=== PATIENT | male | born 1955 | race Caucasian/White ===

== ENCOUNTER 2016-11-21 21:56 | Inpatient (IN) | payer OTHER, MEDICARE ==
[2016-11-21 21:56] VITALS: BMI 27.1
--- NOTE | 2016-11-21 22:25 | C.PDOC ---
History Of Present Illness patient presents with 4-5 episodes of bright red blood per rectum, starting this am around 3 am. No f/c/n/v, no trauma. Has brb per rectum. Pt is on baby asa and brillinta Time Seen by Provider: 11/21/16 22:25 Chief Complaint (Nursing): Abdominal Pain History Per: Patient History/Exam Limitations: no limitations Onset/Duration Of Symptoms: Days Current Symptoms Are (Timing): Still Present Number Of Bleeding Episodes: Multiple: Amount of Blood Loss: Medium Severity: Moderate Pain Scale Rating Of: 5 Quality Of Discomfort: Dull Associated Symptoms: Rectal Bleeding. denies: Nausea, Vomiting Modifying Factors: None Currently Taking: Aspirin Recent travel outside of the [place]: No Additional History Per: Family Past Medical History Reviewed: Historical Data, Nursing Documentation, Vital Signs Vital Signs: Last Vital Signs Temp 99 F 11/21/16 22:17 Pulse 100 H 11/21/16 22:17 Resp 20 11/21/16 22:17 BP 189/107 H 11/21/16 22:17 Pulse Ox 97 11/21/16 23:44 - Medical History PMH: CAD, COPD, Diverticulitis, HTN, Hypercholesterolemia, Hypothyroidism Denies: Chronic Kidney Disease Surgical History: CABG (x3) Denies: Pacemaker - [facility] Procedures LEFT HEART CARDIAC CATH (08/24/13) LT HEART ANGIOCARDIOGRAM (08/24/13) OTHER MYECTOMY (03/17/13) Family History: States: No Known Family Hx - Social History Hx Tobacco Use: No Hx Alcohol Use: Yes ([employer]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 Negative for: Nausea, Vomiting, Abdominal Pain Genitourinary: Negative for: Dysuria Musculoskeletal: Negative for: Back Pain Skin: Negative for: Rash, Lesions, Jaundice, Bruising Neurological: Negative for: Weakness Psych: Negative for: Anxiety Physical Exam - Physical Exam Appears: Non-toxic Skin: Warm, Dry Head: Atraumatic Eye(s): bilateral: Normal Inspection Oral Mucosa: Moist Neck: Supple Chest: Symmetrical Cardiovascular: Rhythm Regular Respiratory: No Rales, No Rhonchi, No Wheezing Gastrointestinal/Abdominal: Soft, No Tenderness, No Distention Rectal: Heme Positive, Hemorrhoids, Other (bright red blood/clots in vault) Back: No CVA Tenderness Extremity: Normal ROM Extremity: Bilateral: Atraumatic, No Pedal Edema, Normal Color And Temperature, Normal ROM Neurological/Psych: Oriented x3, Normal Speech, Normal Cognition Gait: Steady ED Course And Treatment - Laboratory Results Result Diagrams: 11/21/16 23:20 11/21/16 23:20 ECG: Interpreted By Me, Viewed By Me ECG Rhythm: Sinus Rhythm (74), Nonspecific Changes O2 Sat by Pulse Oximetry: 97 Pulse Ox Interpretation: Normal - Radiology CXR: Interpreted by Me, Viewed By Me CXR Interpretation: No: Infiltrates, Fracture, Pnemothorax Progress Note: blood work, 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, 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, protonix bolus Disposition Discussed With Dr.: Lucrecia Glover Comment: accepted the pt on his service and took over the care at 12:03 AM Doctor Will See Patient In The: Hospital Counseled Patient/Family Regarding: Studies Performed, Diagnosis - Disposition Disposition: HOSPITALIZED Disposition Time: 22:25 Condition: GUARDED - POA Present On Arrival: None - Clinical Impression Clinical Impression: Abdominal pain, Rectal bleed Decision To Admit - Pt Status Changed To: Hospital Disposition Of: Inpatient - Admit Certification Admit to Inpatient:: After my assessment, the patient will require hospitalization for at least two midnights. This is because of the severity of symptoms shown, intensity of services needed, and/or the medical risk in this patient being treated as an outpatient. - InPatient: Physician Admission Certification: I certify that this patient requires 2 or more midnights of care for the following reason:: After my assessment, the patient will require hospitalization for at least two midnights. This is because of the severity of symptoms shown, intensity of services needed, and/or the medical risk in this patient being treated as an outpatient. - . Bed Request Type: Telemetry Admitting Physician: Lucrecia Glover Patient Diagnosis: Abdominal pain, Rectal bleed
[2016-11-21] MEDS ORDERED: Sodium Chloride 0.9% 1,000 ML IV ONE (22:31)
[2016-11-21] MEDS ORDERED: Pantoprazole 80 MG in Sodium Chloride 0.9% 100 ML IV STA (22:31)
[2016-11-21 23:13] LABS: RBC URINE 2 /hpf (0-3); URINE BACTERIA OCC (<OCC); URINE BILIRUBIN NEGATIVE (NEGATIVE); URINE COLOR Yellow (YELLOW); URINE GLUCOSE (UA) NORMAL (Normal); URINE KETONE NEGATIVE (NEGATIVE); URINE PROTEIN 1+ mg/dL (NEGATIVE); URINE UROBILINOGEN NORMAL mg/dL (0.2-1.0); WBC URINE 10 /hpf (0-5)
[2016-11-21 23:14] LABS: URINE BLOOD NEGATIVE (NEGATIVE); URINE LEUKOCYTE ESTERASE 1+ Leu/uL (Negative)
[2016-11-21] MEDS ORDERED: Sodium Chloride 0.9% 1,000 ML ONE (23:17)
[2016-11-21 23:27] LABS: BASO # 0.1 K/uL (0.0-0.2); BASO % 0.7 % (0.0-2.0); EOS # 0.2 K/uL (0.0-0.7); EOS % 2.2 % (0.0-4.0); HEMATOCRIT 45.9 % (35.0-51.0); LYMPH # 1.8 K/uL (1.0-4.3); LYMPH % 17.5 % (20.0-40.0); MEAN CORPUSCULAR HEMOGLOBIN 28.5 pg (27.0-31.0); MEAN CORPUSCULAR HGB CONC 32.4 g/dL (33.0-37.0); MEAN PLATELET VOLUME 9.1 fL (7.2-11.7); MONO # 0.9 K/uL (0.0-0.8); MONO % 8.4 % (0.0-10.0); NRBC % 0.1 % (0.0-2.0); RED CELL DISTRIBUTION WIDTH 15.1 % (11.5-14.5); WHITE BLOOD COUNT 10.5 K/uL (4.8-10.8)
[2016-11-21 23:31] LABS: CHLORIDE 101 mmol/L (98-107); POTASSIUM 4.1 mmol/L (3.6-5.2); SODIUM 137 mmol/L (132-148)
[2016-11-21 23:33] LABS: ALB/GLOB RATIO 1.6 (1.0-2.1); ALKALINE PHOSPHATASE 57 U/L (38-126); AST/SGOT 54 U/L (17-59); CARBON DIOXIDE 20 mmol/L (22-30); GFR AFRICAN-AMERICAN > 60; TOTAL PROTEIN 7.8 g/dL (6.3-8.3)
[2016-11-21 23:34] LABS: ALT/SGPT 55 U/L (21-72); BLOOD UREA NITROGEN 23 mg/dL (9-20); GLUCOSE,RANDOM 97 mg/dL (75-110)
[2016-11-22 06:31] LABS: BASO # 0.1 K/uL (0.0-0.2); BASO % 0.8 % (0.0-2.0); EOS # 0.3 K/uL (0.0-0.7); EOS % 2.7 % (0.0-4.0); HEMATOCRIT 40.9 % (35.0-51.0); LYMPH # 1.6 K/uL (1.0-4.3); LYMPH % 16.7 % (20.0-40.0); MEAN CELL VOLUME 87.5 fL (80.0-94.0); MEAN CORPUSCULAR HGB CONC 33.1 g/dL (33.0-37.0); MEAN PLATELET VOLUME 8.7 fL (7.2-11.7); MONO # 0.8 K/uL (0.0-0.8); MONO % 8.7 % (0.0-10.0); RED CELL DISTRIBUTION WIDTH 14.8 % (11.5-14.5); WHITE BLOOD COUNT 9.7 K/uL (4.8-10.8)
--- NOTE | 2016-11-22 07:23 | RAD ---
PROCEDURE: CHEST RADIOGRAPH, 1 VIEW HISTORY: GI Bleeding COMPARISON: Comparison is made to 08/27/2013 FINDINGS: LUNGS: Clear. PLEURA: No pneumothorax or pleural fluid seen. CARDIOVASCULAR: The cardiac silhouette is normal in size. Post cardiac surgery changes are noted. OSSEOUS STRUCTURES: No significant abnormalities. VISUALIZED UPPER ABDOMEN: Normal. OTHER FINDINGS: None. IMPRESSION: No active disease.
[2016-11-22] MEDS ORDERED: HYDROCHLOROTHIAZIDE PO SCH (10:00)
[2016-11-22] MEDS ORDERED: Levothyroxine 25 MCG TAB PO SCH (10:00)
[2016-11-22] MEDS ORDERED: VALSARTAN PO SCH (10:00)
[2016-11-22] MEDS ORDERED: ALPRAZOLAM 0.5 MG PO SCH (10:00)
[2016-11-22] MEDS ORDERED: Home Med 1 UNIT (Atorvastatin [Lipitor] 20 MG) PO SCH (10:00)
[2016-11-22] MEDS ORDERED: Home Med 1 UNIT (Acetaminophen/Oxycodone Hydr [Percocet 10/325 Mg Tab] 1 TAB) PO SCH (10:00)
--- NOTE | 2016-11-22 10:05 | CP.PCM.CON ---
<Varun Aparicio - Last Filed: 11/22/16 12:49> History of Present Illness - History of Present Illness History of Present Illness: PGY4 GI Fellow Consult Note Patient is a 61yo male with PMHx significant for CAD s/p CABG and PCI to RCA, hypertension, hypothyroidism, dyslipidemia, diverticulosis, gout who presented to the ED with complaint of rectal bleeding. The patient states that he had been constipated since Friday and sat on the toilet for close to two hours yesterday morning, pushing and straining to stool. Upon finally passing stool, he developed lower abdominal crmaping pain and noted bright red blood mixed in with his stool. This continued to occur approximately every 4 hours until he decided to come in to the ED last night. The patient was concerned about rectal bleeding given his cardiac history and use of ASA and Ticagrelor. He does admit to a subjective fever/chills yesterday and a distant history of diverticulitis managed conservatively. Denies any nausea, vomiting, weight loss, dizziness, lightheadedness, palpitations, H/O hemorrhoids. PMHx: See HPI PSHx: PCI, CABG FHx: Father/Pt's son - CAD/[place] Social: Former smoker (~40-80 pack years), Former EtOH abuse (sober 5 years), No illicit drug use Endo: Colonoscopy several years ago with polyps found, no repeat colonoscopy Review of Systems - Constitutional Constitutional: absent: Anorexia, Chills, Fever - EENT Eyes: absent: Change in Vision Nose/Mouth/Throat: absent: Sore Throat - Cardiovascular Cardiovascular: absent: Chest Pain, Diaphoresis, Dyspnea - Respiratory Respiratory: absent: Cough, Dyspnea, Excessive Mucous Production - Genitourinary Genitourinary: absent: Dysuria, Urinary Frequency, Urinary Urgency - Musculoskeletal Musculoskeletal: absent: Back Pain, Neck Pain - Integumentary Integumentary: absent: New Lesions, Rash - Neurological Neurological: absent: Dizziness, Numbness, Focal Weakness - Psychiatric Psychiatric: absent: Anxiety, Depression - Endocrine Endocrine: absent: Polydipsia, Polyphagia, Polyuria - Hematologic/Lymphatic Hematologic: absent: Easy Bruising, Lymphadenopathy Past Patient History - Past Medical History & Family History Past Medical History?: Yes - Past Social History Smoking Status: Former Smoker - CARDIAC Hx Hypercholesterolemia: Yes Hx Hypertension: Yes Hx Pacemaker: No - PULMONARY Hx Chronic Obstructive Pulmonary Disease (COPD): Yes - NEUROLOGICAL Hx Paralysis: No - HEENT Hx HEENT Problems: No - RENAL Hx Chronic Kidney Disease: No - ENDOCRINE/METABOLIC Hx Hypothyroidism: Yes - HEMATOLOGICAL/ONCOLOGICAL Hx Blood Transfusions: No Hx Blood Transfusion Reaction: No - INTEGUMENTARY Hx Dermatological Problems: No - MUSCULOSKELETAL/RHEUMATOLOGICAL Hx Falls: No - GASTROINTESTINAL Hx Diverticulitis: Yes - GENITOURINARY/GYNECOLOGICAL Hx Genitourinary Disorders: No - PSYCHIATRIC Hx Substance Use: No - SURGICAL HISTORY Hx Coronary Artery Bypass Graft: Yes (x3) - ANESTHESIA Hx Anesthesia: Yes Hx Anesthesia Reactions: No Hx Malignant Hyperthermia: No Meds Allergies/Adverse Reactions: Allergies Allergy/AdvReac Type Severity Reaction Status Date / Time No Known Allergies Allergy Verified 09/11/15 09:22 - Medications Medications: Current Medications Allopurinol (Zyloprim) 300 mg PO DAILY [facility] Last Admin: 11/22/16 09:41 Dose: 300 mg Cyclobenzaprine HCl (Flexeril) 10 mg PO BID [facility] Last Admin: 11/22/16 05:58 Dose: 10 mg Fenofibrate (Tricor) 48 mg PO DAILY [facility] Last Admin: 11/22/16 09:43 Dose: 48 mg Home Med (Acetaminophen/Oxycodone Hydr [Percocet 10/325 Mg Tab]) 1 tab PO BID [facility] Home Med (Alprazolam [Alprazolam Er]) 0.5 mg PO TID [facility] Home Med (Zolpidem Tartrate [Ambien Cr]) 12.5 mg PO HS [facility] Hydrochlorothiazide (Hydrodiuril) 25 mg PO DAILY [facility] Levothyroxine Sodium (Synthroid) 25 mcg PO DAILY@0630 [facility] Losartan Potassium (Cozaar) 100 mg PO DAILY [facility] Metoprolol Tartrate (Lopressor) 50 mg PO DAILY [facility] Last Admin: 11/22/16 09:41 Dose: 50 mg Pantoprazole Sodium (Protonix Inj) 40 mg IVP DAILY [facility] Last Admin: 11/22/16 09:41 Dose: 40 mg Rosuvastatin Calcium (Crestor) 10 mg PO [facility] Physical Exam - Constitutional Appears: Non-toxic, No Acute Distress - Eye Exam Eye Exam: EOMI, PERRL - ENT Exam ENT Exam: Mucous Membranes Moist - Respiratory Exam Respiratory Exam: Clear to Auscultation Bilateral. absent: Rales, Rhonchi, Wheezes - Cardiovascular Exam Cardiovascular Exam: RRR, +S1, +S2 - GI/Abdominal Exam GI & Abdominal Exam: Normal Bowel Sounds, Soft, Tenderness (LLQ). absent: Distended, Firm, Guarding, Organomegaly, Rigid - Rectal Exam Rectal Exam: absent: Black Stool, Bloody Stool, Hemorrhoids Additional comments: external skin tag - Extremities Exam Extremities exam: Positive for: normal inspection. Negative for: pedal edema - Neurological Exam Neurological exam: Alert, Oriented x3 - Psychiatric Exam Psychiatric exam: Normal Affect, Normal Mood - Skin Skin Exam: Dry, Warm Results - Vital Signs Recent Vital Signs: Last Vital Signs Temp 98.4 F 11/22/16 07:00 Pulse 70 11/22/16 07:00 Resp 20 11/22/16 07:00 BP 120/74 11/22/16 07:00 Pulse Ox 97 11/22/16 07:00 - Labs Result Diagrams: 11/22/16 06:21 11/21/16 23:20 Labs: Laboratory Results - last 24 hr 11/22/16 11/22/16 00:33 06:21 WBC 9.7 RBC 4.68 Hgb 13.6 Hct 40.9 MCV 87.5 MCH 29.0 MCHC 33.1 RDW 14.8 H Plt Count 233 MPV 8.7 Neut % (Auto) 71.1 Lymph % (Auto) 16.7 L [place] % (Auto) 8.7 Eos % (Auto) 2.7 Baso % (Auto) 0.8 Neut # 6.9 Lymph # 1.6 [place] # 0.8 Eos # 0.3 Baso # 0.1 Blood Type O POSITIVE Antibody Screen Negative Assessment & Plan - Assessment and Plan (Free Text) Assessment: Patient is a 61yo male with PMHx significant for CAD s/p CABG and PCI to RCA, hypertension, COPD, hypothyroidism, dyslipidemia, diverticulosis, gout who presented to the ED with complaint of rectal bleeding. 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 -Continue supportive care -Advance diet as tolerated -Will benefit from outpatient follow up and colonoscopy -Continue to monitor in house, possible D/C tomorrow if stable - Date & Time Date: 11/22/16 Time: 10:45 <Axel Rodney - Last Filed: 11/22/16 14:33> Meds - Medications Medications: Current Medications Allopurinol (Zyloprim) 300 mg PO DAILY [facility] Last Admin: 11/22/16 09:41 Dose: 300 mg Alprazolam (Xanax) 0.5 mg PO TID [facility] Last Admin: 11/22/16 11:54 Dose: 0.5 mg Cyclobenzaprine HCl (Flexeril) 10 mg PO BID [facility] Last Admin: 11/22/16 05:58 Dose: 10 mg Fenofibrate (Tricor) 48 mg PO DAILY [facility] Last Admin: 11/22/16 09:43 Dose: 48 mg Hydrochlorothiazide (Hydrodiuril) 25 mg PO DAILY [facility] Last Admin: 11/22/16 11:54 Dose: 25 mg Levothyroxine Sodium (Synthroid) 25 mcg PO DAILY@0630 [facility] Losartan Potassium (Cozaar) 100 mg PO DAILY [facility] Last Admin: 11/22/16 11:54 Dose: 100 mg Metoprolol Tartrate (Lopressor) 50 mg PO DAILY [facility] Last Admin: 11/22/16 09:41 Dose: 50 mg Oxycodone/Acetaminophen (Percocet 5/325 Mg Tab) 1 tab PO BID [facility] Last Admin: 11/22/16 11:55 Dose: 1 tab Pantoprazole Sodium (Protonix Inj) 40 mg IVP DAILY [facility] Last Admin: 11/22/16 09:41 Dose: 40 mg Rosuvastatin Calcium (Crestor) 10 mg PO HS [facility] Zolpidem Tartrate (Ambien) 5 mg PO HS [facility] Results - Vital Signs Recent Vital Signs: Last Vital Signs Temp 98.4 F 11/22/16 07:00 Pulse 68 11/22/16 07:45 Resp 20 11/22/16 07:00 BP 120/74 11/22/16 07:00 Pulse Ox 97 11/22/16 07:00 - Labs Result Diagrams: 11/22/16 06:21 11/21/16 23:20 Labs: Laboratory Results - last 24 hr 11/22/16 11/22/16 00:33 06:21 WBC 9.7 RBC 4.68 Hgb 13.6 Hct 40.9 MCV 87.5 MCH 29.0 MCHC 33.1 RDW 14.8 H Plt Count 233 MPV 8.7 Neut % (Auto) 71.1 Lymph % (Auto) 16.7 L [place] % (Auto) 8.7 Eos % (Auto) 2.7 Baso % (Auto) 0.8 Neut # 6.9 Lymph # 1.6 [place] # 0.8 Eos # 0.3 Baso # 0.1 Blood Type O POSITIVE Antibody Screen Negative Attending/Attestation - Attestation I have personally seen and examined this patient.: Yes I have fully participated in the care of the patient.: Yes I have reviewed all pertinent clinical information: Yes Notes (Text): 11/22/16 14:27 I have seen and examined patient with GI fellow. Agree with above documentation with the following additions. In brief, this is a 61 year old male with history of CAD/CABG s/p stent on brilinta, HTN, hypothyroidism who presents to hospital with complaint of rectal bleeding which started yesterday. He notes ongoing chronic constipation with heavy straining/pushing during defecation yesterday prior to bleeding episode. Following this he notes 2 additional episodes of hematochezia which prompted him to come to hospital. He also reports associated mild LLQ abdominal pain but denies nausea, vomiting, fever/chills, weight loss, or change in bowel habits. He had a colonoscopy 10 years ago which showed a "few" polyps as per patient. CAD/CABG s/p stent on brilinta HTN Hypothyroidism Rectal bleeding in setting of acute constipation - H/H stable, continue to monitor - Advance diet as tolerated - Currently hemodynamically stable without evidence of recurrent bleeding noted while in hospital, continue with observation. Brilinta temporarily being held, follow up cardiology recommendations - Bowel regimen to prevent constipation - Patient certainly would benefit from colonoscopy evaluation given rectal bleeding, this can be scheduled electively as outpatient. Patient given office contact information for follow up.
--- NOTE | 2016-11-22 11:51 | CARD ---
APPROVED REPORT EKG Measurement Heart [id number] <Conclusion> Normal sinus rhythm Minimal voltage criteria for LVH, may be normal variant Borderline ECG
[2016-11-22] MEDS: Oxycodone/Acetaminophen 5/325 mg Tab PO SCH ×2 (11:55→17:40)
--- NOTE | 2016-11-22 18:25 | CP.PCM.HP ---
History of Present Illness - History of Present Illness History of Present Illness: Patient is a 61-year-old male with past medical history significant for CAD S/P CABG and PCI to RCA, hypertension, hypothyroidism, dyslipidemia, diverticulosis , gout who presented to ED with complaint of rectal bleeding. Patient states that he had been constipated since Friday and Friday on the toilet for close to 2 hours yesterday morning, pushing and straining to stool. Upon finally passing stool, he developed lower abdominal cramping pain and noted bright red blood mixed in with his stool. This continued to occur approximately every 4 hours until he decided to come in to the ED. Patient was concerned about rectal bleeding given his cardiac history and use of aspirin and ticagrelor. He does admit to a subjective fever/chills yesterday and a distant history of diverticulitis managed conservatively. Denies any nausea, vomiting, weight loss , dizziness, lightheadedness, palpitation. Present on Admission - Present on Admission Any Indicators Present on Admission: No Past Patient History - Past Medical History & Family History Past Medical History?: Yes - Past Social History Smoking Status: Former Smoker - CARDIAC Hx Cardiac Disorders: Yes (CAD, CABGx3) Hx Hypercholesterolemia: Yes Hx Hypertension: Yes - PULMONARY Hx Chronic Obstructive Pulmonary Disease (COPD): Yes - NEUROLOGICAL Hx Paralysis: No - HEENT Hx HEENT Problems: No - RENAL Hx Chronic Kidney Disease: No - ENDOCRINE/METABOLIC Hx Hypothyroidism: Yes - HEMATOLOGICAL/ONCOLOGICAL Hx Blood Transfusions: No Hx Blood Transfusion Reaction: No - INTEGUMENTARY Hx Dermatological Problems: No - MUSCULOSKELETAL/RHEUMATOLOGICAL Hx Falls: No - GASTROINTESTINAL Hx Diverticulitis: Yes - GENITOURINARY/GYNECOLOGICAL Hx Genitourinary Disorders: No - PSYCHIATRIC Hx Substance Use: No - SURGICAL HISTORY Hx Coronary Artery Bypass Graft: Yes (x3) - ANESTHESIA Hx Anesthesia: Yes Hx Anesthesia Reactions: No Hx Malignant Hyperthermia: No Meds Allergies/Adverse Reactions: Allergies Allergy/AdvReac Type Severity Reaction Status Date / Time No Known Allergies Allergy Verified 01/27/17 07:17 Physical Exam - Constitutional Appears: Well - Head Exam Head Exam: ATRAUMATIC, NORMAL INSPECTION, NORMOCEPHALIC - Eye Exam Eye Exam: EOMI, Normal appearance, PERRL Pupil Exam: NORMAL ACCOMODATION, PERRL - ENT Exam ENT Exam: Mucous Membranes Moist, Normal Exam - Neck Exam Neck exam: Positive for: Normal Inspection - Respiratory Exam Respiratory Exam: Decreased Breath Sounds - Cardiovascular Exam Cardiovascular Exam: REGULAR RHYTHM, +S1, +S2 - GI/Abdominal Exam GI & Abdominal Exam: Diminished Bowel Sounds, Soft - Rectal Exam Rectal Exam: Deferred Results - Vital Signs Recent Vital Signs: Last Vital Signs Temp 98.2 F 11/22/16 15:07 Pulse 59 L 11/22/16 15:07 Resp 20 11/22/16 15:07 BP 101/65 11/22/16 15:07 Pulse Ox 98 11/22/16 15:07 - Labs Result Diagrams: 11/22/16 06:21 11/21/16 23:20 Labs: Laboratory Results - last 24 hr 11/22/16 11/22/16 00:33 06:21 WBC 9.7 RBC 4.68 Hgb 13.6 Hct 40.9 MCV 87.5 MCH 29.0 MCHC 33.1 RDW 14.8 H Plt Count 233 MPV 8.7 Neut % (Auto) 71.1 Lymph % (Auto) 16.7 L [place] % (Auto) 8.7 Eos % (Auto) 2.7 Baso % (Auto) 0.8 Neut # 6.9 Lymph # 1.6 [place] # 0.8 Eos # 0.3 Baso # 0.1 Blood Type O POSITIVE Antibody Screen Negative Assessment & Plan (1) Abdominal pain Status: Acute (2) Colitis Status: Acute (3) Perforated ear drum Status: Acute (4) Rectal bleed Status: Acute - Assessment and Plan (Free Text) Plan: Consult GI Zyloprim TriCor HydroDiuril Synthroid Cozaar Lopressor Percocet Protonix Crestor
[2016-11-22] MEDS ORDERED: ZOLPIDEM TARTRATE 12.5 MG PO SCH (22:00)
[2016-11-23] MEDS ORDERED: Levothyroxine 25 MCG TAB PO SCH (06:30)
--- NOTE | 2016-11-23 08:08 | CP.PCM.PN ---
<Varun Aparicio - Last Filed: 11/23/16 09:01> Subjective - Date & Time of Evaluation Date of Evaluation: 11/23/16 Time of Evaluation: 08:04 - Subjective Subjective: PGY4 GI Fellow Progress Note Patient seen and examined bedside this morning. He has not had any further bloody bowel movements since yesterday. Tolerating diet without issue. Less abdominal pain, rates it 1/10 at present. No nausea, vomiting, diarrhea, fever, chills. 12 system ROS performed and negative except where stated. Objective - Vital Signs/Intake and Output Vital Signs (last 24 hours): Temp Pulse Resp BP Pulse Ox 98.6 F 77 20 124/79 98 11/22/16 23:00 11/23/16 00:05 11/22/16 23:00 11/22/16 23:00 11/22/16 15:07 Intake and Output: 11/23/16 11/23/16 06:59 18:59 Intake Total 660 Balance 660 - Medications Medications: Current Medications Allopurinol (Zyloprim) 300 mg PO DAILY [facility] Last Admin: 11/22/16 09:41 Dose: 300 mg Alprazolam (Xanax) 0.5 mg PO TID [facility] Last Admin: 11/22/16 17:41 Dose: 0.5 mg Cyclobenzaprine HCl (Flexeril) 10 mg PO BID [facility] Last Admin: 11/22/16 17:41 Dose: 10 mg Fenofibrate (Tricor) 48 mg PO DAILY [facility] Last Admin: 11/22/16 09:43 Dose: 48 mg Hydrochlorothiazide (Hydrodiuril) 25 mg PO DAILY [facility] Last Admin: 11/22/16 11:54 Dose: 25 mg Levothyroxine Sodium (Synthroid) 25 mcg PO DAILY@0630 [facility] Last Admin: 11/23/16 06:07 Dose: 25 mcg Losartan Potassium (Cozaar) 100 mg PO DAILY [facility] Last Admin: 11/22/16 11:54 Dose: 100 mg Metoprolol Tartrate (Lopressor) 50 mg PO DAILY [facility] Last Admin: 11/22/16 09:41 Dose: 50 mg Oxycodone/Acetaminophen (Percocet 5/325 Mg Tab) 1 tab PO BID [facility] Last Admin: 11/22/16 17:40 Dose: 1 tab Pantoprazole Sodium (Protonix Inj) 40 mg IVP DAILY [facility] Last Admin: 11/22/16 09:41 Dose: 40 mg Rosuvastatin Calcium (Crestor) 10 mg PO HS [facility] Last Admin: 11/22/16 22:16 Dose: 10 mg Zolpidem Tartrate (Ambien) 5 mg PO HS [facility] Last Admin: 11/22/16 22:22 Dose: 5 mg - Labs Labs: 11/22/16 06:21 PT 11.5 SECONDS (9.7-12.2) 11/21/16 23:03 INR 1.0 11/21/16 23:03 APTT 21 SECONDS (21-34) 11/21/16 23:03 - Constitutional Appears: Non-toxic, No Acute Distress - Eye Exam Eye Exam: EOMI, PERRL - ENT Exam ENT Exam: Mucous Membranes Moist - Respiratory Exam Respiratory Exam: Clear to Ausculation Bilateral. absent: Rales, Rhonchi, Wheezes - Cardiovascular Exam Cardiovascular Exam: RRR, +S1, +S2 - GI/Abdominal Exam GI & Abdominal Exam: Soft, Normal Bowel Sounds. absent: Distended, Firm, Guarding, Rigid, Tenderness, Organomegaly - Extremities Exam Extremities Exam: Normal Inspection. absent: Pedal Edema - Neurological Exam Neurological Exam: Alert, Awake, Oriented x3 - Psychiatric Exam Psychiatric exam: Normal Affect, Normal Mood - Skin Skin Exam: Dry, Warm Assessment and Plan - Assessment and Plan (Free Text) Assessment: Patient is a 61yo male with PMHx significant for CAD s/p CABG and PCI to RCA, hypertension, COPD, hypothyroidism, dyslipidemia, diverticulosis, gout who presented to the ED with complaint of rectal bleeding. -Rectal bleeding, suspect lower GI bleeding, likely diverticular bleed -Constipation -H/O diverticulosis -CAD on ASA/Ticagrelor -Hypertension -Hypothyroidism Plan: -Continue to hold ASA/Ticagrelor in setting of ongoing hematochezia, no contraindication to resuming therapy at this juncture -Continue supportive care -Tolerating diet without issue, advance to regular diet/high fiber -Will benefit from outpatient follow up and colonoscopy, information given to patient -HCV Ab screening negative -Clear for D/C from GI standpoint <Axel Rodney - Last Filed: 11/23/16 09:07> Objective - Vital Signs/Intake and Output Vital Signs (last 24 hours): Temp Pulse Resp BP Pulse Ox 98.0 F 77 18 126/70 97 11/23/16 07:02 11/23/16 08:25 11/23/16 07:02 11/23/16 07:02 11/23/16 07:02 Intake and Output: 11/23/16 11/23/16 06:59 18:59 Intake Total 660 Balance 660 - Medications Medications: Current Medications Allopurinol (Zyloprim) 300 mg PO DAILY [facility] Last Admin: 11/22/16 09:41 Dose: 300 mg Alprazolam (Xanax) 0.5 mg PO TID [facility] Last Admin: 11/22/16 17:41 Dose: 0.5 mg Cyclobenzaprine HCl (Flexeril) 10 mg PO BID [facility] Last Admin: 11/22/16 17:41 Dose: 10 mg Fenofibrate (Tricor) 48 mg PO DAILY [facility] Last Admin: 11/22/16 09:43 Dose: 48 mg Hydrochlorothiazide (Hydrodiuril) 25 mg PO DAILY [facility] Last Admin: 11/22/16 11:54 Dose: 25 mg Levothyroxine Sodium (Synthroid) 25 mcg PO DAILY@0630 [facility] Last Admin: 11/23/16 06:07 Dose: 25 mcg Losartan Potassium (Cozaar) 100 mg PO DAILY [facility] Last Admin: 11/22/16 11:54 Dose: 100 mg Metoprolol Tartrate (Lopressor) 50 mg PO DAILY [facility] Last Admin: 11/22/16 09:41 Dose: 50 mg Oxycodone/Acetaminophen (Percocet 5/325 Mg Tab) 1 tab PO BID [facility] Last Admin: 11/22/16 17:40 Dose: 1 tab Pantoprazole Sodium (Protonix Inj) 40 mg IVP DAILY [facility] Last Admin: 11/22/16 09:41 Dose: 40 mg Rosuvastatin Calcium (Crestor) 10 mg PO HS [facility] Last Admin: 11/22/16 22:16 Dose: 10 mg Zolpidem Tartrate (Ambien) 5 mg PO HS [facility] Last Admin: 11/22/16 22:22 Dose: 5 mg - Labs Labs: 11/22/16 06:21 PT 11.5 SECONDS (9.7-12.2) 11/21/16 23:03 INR 1.0 11/21/16 23:03 APTT 21 SECONDS (21-34) 11/21/16 23:03 Attending/Attestation - Attestation I have personally seen and examined this patient.: Yes I have fully participated in the care of the patient.: Yes I have reviewed all pertinent clinical information, including history, physical exam and plan: Yes Notes (Text): 11/23/16 09:04 I have seen and examined patient with GI fellow. No acute events overnight, he is seen resting in bed appears quite comfortable. His abdominal pain has essentially resolved and he denies nausea, vomiting, diarrhea, fever/chills. He consumed his breakfast tray in entirety today. Review of vitals from today are normal. CAD/CABG s/p stent on Brilinta HTN Hyperlipidemia Rectal bleeding - resolved. Chronic constipation. - Advance diet as tolerated - H/H stable, continue to monitor - No contraindication to resuming antiplatelet therapy at this time - Patient will need outpatient colonoscopy for further evaluation of rectal bleeding, will coordinate with Dr. Boothe regarding holding Brilinta prior to procedure. From GI perspective ok to discharge home with subsequent outpatient follow up.
[2016-11-23 08:58] VITALS: TEMP 98
[2016-11-23] MEDS: Oxycodone/Acetaminophen 5/325 mg Tab PO SCH (09:31)
--- NOTE | 2016-11-23 14:09 | CP.PCM.PN ---
Subjective - Date & Time of Evaluation Date of Evaluation: 11/23/16 Time of Evaluation: 14:20 - Subjective Subjective: clinically same Objective - Vital Signs/Intake and Output Vital Signs (last 24 hours): Temp Pulse Resp BP Pulse Ox 98.0 F 77 18 126/70 97 11/23/16 07:02 11/23/16 08:25 11/23/16 07:02 11/23/16 07:02 11/23/16 07:02 Intake and Output: 11/23/16 11/23/16 06:59 18:59 Intake Total 660 Balance 660 - Medications Medications: Current Medications Allopurinol (Zyloprim) 300 mg PO DAILY [facility] Last Admin: 11/23/16 09:30 Dose: 300 mg Alprazolam (Xanax) 0.5 mg PO TID [facility] Last Admin: 11/23/16 13:17 Dose: 0.5 mg Cyclobenzaprine HCl (Flexeril) 10 mg PO BID [facility] Last Admin: 11/23/16 09:29 Dose: 10 mg Fenofibrate (Tricor) 48 mg PO DAILY [facility] Last Admin: 11/23/16 09:29 Dose: 48 mg Hydrochlorothiazide (Hydrodiuril) 25 mg PO DAILY [facility] Last Admin: 11/23/16 09:29 Dose: 25 mg Levothyroxine Sodium (Synthroid) 25 mcg PO DAILY@0630 [facility] Last Admin: 11/23/16 06:07 Dose: 25 mcg Losartan Potassium (Cozaar) 100 mg PO DAILY [facility] Last Admin: 11/23/16 09:30 Dose: 100 mg Metoprolol Tartrate (Lopressor) 50 mg PO DAILY [facility] Last Admin: 11/23/16 09:29 Dose: 50 mg Oxycodone/Acetaminophen (Percocet 5/325 Mg Tab) 1 tab PO BID [facility] Last Admin: 11/23/16 09:31 Dose: 1 tab Pantoprazole Sodium (Protonix Inj) 40 mg IVP DAILY [facility] Last Admin: 11/23/16 09:29 Dose: 40 mg Rosuvastatin Calcium (Crestor) 10 mg PO HS [facility] Last Admin: 11/22/16 22:16 Dose: 10 mg Zolpidem Tartrate (Ambien) 5 mg PO HS [facility] Last Admin: 11/22/16 22:22 Dose: 5 mg - Labs Labs: 11/22/16 06:21 PT 11.5 SECONDS (9.7-12.2) 11/21/16 23:03 INR 1.0 11/21/16 23:03 APTT 21 SECONDS (21-34) 11/21/16 23:03 - Constitutional Appears: Well - Head Exam Head Exam: ATRAUMATIC, NORMAL INSPECTION, NORMOCEPHALIC - Eye Exam Eye Exam: EOMI, Normal appearance, PERRL Pupil Exam: NORMAL ACCOMODATION, PERRL - ENT Exam ENT Exam: Mucous Membranes Moist, Normal Exam - Neck Exam Neck Exam: Full ROM, Normal Inspection. absent: Lymphadenopathy - Respiratory Exam Respiratory Exam: Decreased Breath Sounds - Cardiovascular Exam Cardiovascular Exam: REGULAR RHYTHM, +S1, +S2 - GI/Abdominal Exam GI & Abdominal Exam: Soft, Diminished Bowel Sounds - Rectal Exam Rectal Exam: Deferred Assessment and Plan (1) Abdominal pain Status: Acute (2) Colitis Status: Acute (3) Perforated ear drum Status: Acute (4) Rectal bleed Status: Acute - Assessment and Plan (Free Text) Plan: Patient feeling better Discharge home today Follow-up in my clinic in 1 week Follow-up with Dr. marj tavarez Follow-up with Dr. Boothe next Watch for bleeding If no bleeding then to start aspirin, Brilinta on Friday
--- NOTE | 2016-11-23 14:30 | CP.PCM.PN ---
Subjective - Date & Time of Evaluation Date of Evaluation: 11/23/16 Time of Evaluation: 14:00 - Subjective Subjective: RN PLACEMENT NOTES 61 yr old male admitted for rectal bleeding Pt seen today with Dr. René brown, denies any abdominal pain, further rectal bleeding, tolerating diet seen by GI , hgb stable , cleared for discharge from GI standpoint and f/u out patient for further work up As per Dr. René brown, pt cleared for discharge home today and f/u with his office on Friday , and resume brilinta on Friday if no further bleeding Discharge plan discussed with patient who understands and agrees with plan Pt instructed to returns to ED if symptoms returns Objective - Vital Signs/Intake and Output Vital Signs (last 24 hours): Temp Pulse Resp BP Pulse Ox 98.0 F 77 18 126/70 97 11/23/16 07:02 11/23/16 08:25 11/23/16 07:02 11/23/16 07:02 11/23/16 07:02 Intake and Output: 11/23/16 11/23/16 06:59 18:59 Intake Total 660 Balance 660 - Medications Medications: Current Medications Allopurinol (Zyloprim) 300 mg PO DAILY [facility] Last Admin: 11/23/16 09:30 Dose: 300 mg Alprazolam (Xanax) 0.5 mg PO TID [facility] Last Admin: 11/23/16 13:17 Dose: 0.5 mg Cyclobenzaprine HCl (Flexeril) 10 mg PO BID [facility] Last Admin: 11/23/16 09:29 Dose: 10 mg Fenofibrate (Tricor) 48 mg PO DAILY [facility] Last Admin: 11/23/16 09:29 Dose: 48 mg Hydrochlorothiazide (Hydrodiuril) 25 mg PO DAILY [facility] Last Admin: 11/23/16 09:29 Dose: 25 mg Levothyroxine Sodium (Synthroid) 25 mcg PO DAILY@0630 [facility] Last Admin: 11/23/16 06:07 Dose: 25 mcg Losartan Potassium (Cozaar) 100 mg PO DAILY [facility] Last Admin: 11/23/16 09:30 Dose: 100 mg Metoprolol Tartrate (Lopressor) 50 mg PO DAILY [facility] Last Admin: 11/23/16 09:29 Dose: 50 mg Oxycodone/Acetaminophen (Percocet 5/325 Mg Tab) 1 tab PO BID [facility] Last Admin: 11/23/16 09:31 Dose: 1 tab Pantoprazole Sodium (Protonix Inj) 40 mg IVP DAILY [facility] Last Admin: 11/23/16 09:29 Dose: 40 mg Rosuvastatin Calcium (Crestor) 10 mg PO HS [facility] Last Admin: 11/22/16 22:16 Dose: 10 mg Zolpidem Tartrate (Ambien) 5 mg PO HS [facility] Last Admin: 11/22/16 22:22 Dose: 5 mg - Labs Labs: 11/22/16 06:21 PT 11.5 SECONDS (9.7-12.2) 11/21/16 23:03 INR 1.0 11/21/16 23:03 APTT 21 SECONDS (21-34) 11/21/16 23:03
[2016-11-23 15:19] VITALS: BP 112/69; PULSE 70; RESP 20; O2SAT 99
== END 2016-11-23 16:00 | disposition home or self-care (01) | DRG 379 ==
LOC: C.ER 21:56 → C.6T 11-22 00:05
PROVIDERS: ADMIT Internal Medicine Nephrology; ATTEND Internal Medicine Nephrology
DX: K57.31 Diverticulosis of large intestine without perforation or abscess with bleeding (principal); I10 Essential (primary) hypertension; J44.9 Chronic obstructive pulmonary disease, unspecified; K59.00 Constipation, unspecified; E03.9 Hypothyroidism, unspecified; E78.5 Hyperlipidemia, unspecified; I25.10 Atherosclerotic heart disease of native coronary artery without angina pectoris; Z95.1 Presence of aortocoronary bypass graft; Z95.5 Presence of coronary angioplasty implant and graft; Z87.891 Personal history of nicotine dependence

== ENCOUNTER 2017-01-27 06:30 | Day surgery (SDC) | payer OTHER, MEDICARE ==
[2017-01-27 07:39] VITALS: O2SAT 100
[2017-01-27] MEDS ORDERED: Propofol 10 mg/ml Inj (20 ML) ONE (08:21)
[2017-01-27] MEDS ORDERED: Lactated Ringer's 500 ML IV ONE (08:21)
[2017-01-27] MEDS ORDERED: Lidocaine Hydrochloride 5 ML INJ ONE (08:21)
--- NOTE | 2017-01-27 08:24 | CP.SDSHP ---
Same Day Surgery H & P - History Proposed Procedure: Colonoscopy Pre-Op Diagnosis: Lower GI bleeding - Previous Medical/Surgical History Cardiac: Hypertension, ASHD/CAD Pulmonary: Emphysema/COPD Endocrine/Metabolic: Thyroid Disease Previous Surgical History: CABG, cardiac catheterization with stents, right knee arthroscopy - Allergies Allergies: Allergies No Known Allergies Allergy (Verified 01/27/17 07:17) - Current Medications Current Medications: See reconciliation sheet - Physical Exam General Appearance: WD WN male in NAD Vital Signs: Vital Signs 01/27/17 07:10 Temperature 97.0 F L Pulse Rate 65 Respiratory 19 Rate Blood Pressure 149/76 O2 Sat by Pulse 100 Oximetry Mental Status: Alert & Oriented x3 Neuro: WNL Heart: WNL Lungs: WNL GI: WNL - {Optional Preform as Required} Abdomen: WNL - Impression Impression: Lower GI bleeding Pt. Evaluated Today:Candidate for Anesthesia & Procedure: Yes - Date & Time Date: 01/27/17 Time: 08:23 Short Stay Discharge - Short Stay Discharge Admitting Diagnosis/Reason for Visit: LOWER GI BLEEDING Disposition: HOME/ ROUTINE
[2017-01-27 10:06] VITALS: BP 124/66; PULSE 59; RESP 15; TEMP 98.1
== END 2017-01-27 10:05 | disposition home or self-care (01) ==
LOC: C.ENDO 06:30
PROVIDERS: ATTEND Internal Medicine Gastroenterology
DX: D12.3 Benign neoplasm of transverse colon (principal)
CPT/HCPCS: 45388; 88305; J2704; J7120

== ENCOUNTER 2017-05-28 07:45 | Inpatient (IN) | payer OTHER, MEDICARE ==
[2017-05-05 09:28] VITALS: BMI 28.5
[2017-05-30] MEDS ORDERED: Bupivacaine HCl 0.5% PF (10 ml) Inj ONE (10:41)
[2017-05-30] MEDS ORDERED: ceFAZolin IV 1 gm in Dextrose 0 GM/0 ML BAG IVPB ONE (10:41)
[2017-05-30] MEDS ORDERED: Bupivacaine 0.5% Inj(30mL) ONE ×2 (10:42→15:56)
[2017-05-30] MEDS ORDERED: Bacitracin 150,000 UNIT in Sodium Chloride 0.9% Irrig 3,000 ML IR SCH (10:45)
[2017-05-30] MEDS ORDERED: Lactated Ringer's 1,000 ML IV ONE ×3 (11:26→17:00)
[2017-05-30] MEDS ORDERED: Propofol 10 mg/ml Inj (20 ML) ONE (11:35)
[2017-05-30] MEDS ORDERED: ceFAZolin IV 2 gm in Dextrose 1 GM/50 ML BAG IVPB ONE (11:39)
[2017-05-30] MEDS ORDERED: Bupivacaine Liposomal Inj 20 ml INJ ONE (11:45)
[2017-05-30] MEDS ORDERED: Sodium Chloride 0.9% 60 ML IV ONE (12:17)
[2017-05-30] MEDS ORDERED: ePHEDrine 50 mg/ml Inj ONE (12:33)
[2017-05-30] MEDS ORDERED: Phenylephrine 10 mg/ml Inj ONE (12:33)
[2017-05-30] MEDS ORDERED: Morphine 4 MG/ML VIAL ONE (12:48)
[2017-05-30] MEDS ORDERED: Neostigmine Methylsulfate 3mg/3ml Syringe IV ONE (15:16)
[2017-05-30] MEDS: HYDROmorphone 0.5 mg/0.5 ml ISec IVP PRN ×3 (15:44→17:50)
--- NOTE | 2017-05-30 16:38 | PCM.ANESB3 ---
Femoral Nerve Block - Femoral Nerve Block Date of Procedure: 05/30/17 Anesthesiologist: Oliver Procedure Performed: Femoral Nerve Block Right - Procedure Femoral Nerve Block: The procedure was explained to the patient that it is for the post-operative pain management. Preoperative consent was obtained after a thorough discussion with the patient regarding the benefits and possible complications. Due to cast and dressing placement, I was unable to obtain an ultrasound view for an adductor canal block that could be confidently performed in a sterile fashion. Decision was made to proceed with femoral nerve block at inguinal crease. Standard monitors were applied in pacu and analgesia was provided intravenously by PACU nurse. After applying oxygen by nasal cannula and administering IV Sedation, patient was placed in supine position with fully extended lower extremities and the right groin exposed. The femoral artery was then carefully palpated. The ultrasound transducer was then applied to this area in the transverse plane and the femoral nerve was visualized lateral to the femoral artery and underneath the fascia iliaca. After thorough identification, the inguinal crease area was prepped with chloraprep. At this point, a #21 gauge Stimuplex 4-inch needle was inserted immediately lateral to the femoral artery pulse at the inguinal crease and advanced perpendicularly. The needle was inserted to the ultrasound transducer in-plane towards the femoral nerve in a [id number] direction. Needle advancement was performed carefully under direct ultrasound visualization. After negative aspiration, ___20__cc of ___0.5__% _bupivacaine was injected and Under ultrasound guidance the local anesthetics were observed spreading below fascia iliaca and around the femoral nerve. The needle was removed intact and sterile dressing was applied. The patient had stable vital signs, was conscious and in no apparent distress. The patient tolerated the femoral nerve block well with stable vital signs and good analgesia
[2017-05-30] MEDS ORDERED: HYDROmorphone 0.5 mg/0.5 ml ISec ONE (17:51)
--- NOTE | 2017-05-30 18:50 | RAD ---
PROCEDURE: Right Knee Radiographs. HISTORY: In Pacu, s/p R TKA COMPARISON: Comparison made with radiographs of the bilateral knee radiographs 02/27/2017. FINDINGS: BONES: Status post right TKA. Hardware appears intact. There is satisfactory alignment. Expected unremarkable postoperative changes include subcutaneous air edema/infiltration and in situ drainage catheter. Metallic skin closure dario are present. JOINTS: Normal. No osteoarthritis. JOINT EFFUSION: None. OTHER FINDINGS: None. IMPRESSION: Status post right TKA. Satisfactory alignment.
[2017-05-30] MEDS ORDERED: Sodium Chloride 0.9% 1,000 ML IV ONE (20:00)
[2017-05-30] MEDS ORDERED: Fluticasone-Salmeterol 250-50mcg Diskus INH SCH (20:00)
[2017-05-30] MEDS ORDERED: ceFAZolin IV 2 gm in Dextrose 2 GM/100 ML BAG IVPB SCH (20:00)
[2017-05-30] MEDS: HYDROmorphone 1 mg/ml ISec IVP PRN (20:30)
[2017-05-30] MEDS: ceFAZolin IV 2 gm in Dextrose 2 GM/100 ML BAG IVPB SCH (21:34)
[2017-05-30] MEDS: Oxycodone/Acetaminophen 5/325 mg Tab PO PRN (22:30)
[2017-05-31] MEDS: HYDROmorphone 1 mg/ml ISec IVP PRN ×4 (00:34→21:38)
[2017-05-31 03:24] VITALS: RESP 20
[2017-05-31] MEDS: ceFAZolin IV 2 gm in Dextrose 2 GM/100 ML BAG IVPB SCH ×3 (04:27→21:41)
[2017-05-31] MEDS: Levothyroxine 25 MCG TAB PO SCH (05:52)
[2017-05-31 07:40] LABS: BASO # 0.1 K/uL (0.0-0.2); BASO % 1.4 % (0.0-2.0); EOS % 0.4 % (0.0-4.0); HEMATOCRIT 35.4 % (35.0-51.0); LYMPH # 0.7 K/uL (1.0-4.3); LYMPH % 7.8 % (20.0-40.0); MEAN CELL VOLUME 87.6 fL (80.0-94.0); MEAN CORPUSCULAR HEMOGLOBIN 28.8 pg (27.0-31.0); MEAN CORPUSCULAR HGB CONC 32.8 g/dL (33.0-37.0); MEAN PLATELET VOLUME 8.8 fL (7.2-11.7); MONO # 1.2 K/uL (0.0-0.8); MONO % 13.3 % (0.0-10.0); NRBC % 0.1 % (0.0-2.0); PLATELET COUNT 204 K/uL (130-400); RED CELL DISTRIBUTION WIDTH 14.3 % (11.5-14.5)
[2017-05-31 08:11] LABS: CHLORIDE 95 mmol/L (98-107)
[2017-05-31 08:12] LABS: POTASSIUM 3.9 mmol/L (3.6-5.2); SODIUM 131 mmol/L (132-148)
[2017-05-31 08:14] LABS: ALB/GLOB RATIO 1.9 (1.0-2.1); ALKALINE PHOSPHATASE 39 U/L (38-126); ALT/SGPT 50 U/L (21-72); AST/SGOT 35 U/L (17-59); BLOOD UREA NITROGEN 25 mg/dL (9-20); CALCIUM 7.6 mg/dl (8.6-10.4); CARBON DIOXIDE 25 mmol/L (22-30); GFR AFRICAN-AMERICAN > 60; GLUCOSE,RANDOM 94 mg/dL (75-110); TOTAL PROTEIN 5.6 g/dL (6.3-8.3)
[2017-05-31] MEDS: Magnesium Oxide 400 mg Tab UD PO SCH (10:07)
[2017-05-31 10:10] LABS: EOSINOPHIL 1 % (0-4); METAMYELOCYTE 1 % (0-0); NEUTROPHIL 71 % (50-75); TOTAL CELLS COUNTED 100
[2017-05-31] MEDS: Enoxaparin 40 mg Syringe SC SCH (10:10)
[2017-05-31] MEDS: Sodium Chloride 0.9% 1,000 ML IV SCH ×2 (11:45→17:33)
[2017-05-31] MEDS: Oxycodone/Acetaminophen 5/325 mg Tab PO PRN ×2 (14:05→18:19)
--- NOTE | 2017-05-31 18:18 | RAD ---
PROCEDURE: CHEST RADIOGRAPH, 1 VIEW HISTORY: postop fever COMPARISON: 11/21/2016 FINDINGS: LUNGS: Status post median sternotomy. No focal infiltrate or effusion. Small nodular density at the right lung base may represent vessel on end. PLEURA: No pneumothorax or pleural fluid seen. CARDIOVASCULAR: Normal. OSSEOUS STRUCTURES: No significant abnormalities. VISUALIZED UPPER ABDOMEN: Normal. OTHER FINDINGS: None. IMPRESSION: No focal infiltrate or effusion.
--- NOTE | 2017-05-31 20:05 | PCM.SURG1 ---
Surgeon's Initial Post Op Note - Surgeon's Notes Surgeon: Marisol Guadarrama MD Adult Care Manager: Jazmyne Boles PA-C Type of Anesthesia: General Endo, Block [facility] Pre-Operative Diagnosis: Right knee #1 DJD. #2 Varus Operative Findings: Right knee #1 DJD. #2 Varus. #3 synovitis. #4 multiple loose bodies posterior knee Post-Operative Diagnosis: Right knee #1 DJD. #2 Varus. #3 synovitis. #4 multiple loose bodies posterior knee Operation Performed: Right knee #1 total knee replacement. #2 open synovectomy. #3 open removal loose bodies Specimen/Specimens Removed: Speciment= bone cuts & loose bodies. Tourniquet time= 128min at 300mmHg. Implants= [employer] My Knee GMK spere system, size 5 cemented femur/size 5 cemented tibia plate/size 13mm sphere poly spacer/ size 2 cemented poly patella button. Complications= none Estimated Blood Loss: EBL {In ML}: 50 Blood Products Given: N/A Drains Used: No Drains, Hemovac Post-Op Condition: Good Date of Surgery/Procedure: 05/30/17 Time of Surgery/Procedure: 17:00
[2017-05-31 22:57] LABS: RBC URINE 10 /hpf (0-3); URINE BACTERIA OCC (<OCC); URINE BILIRUBIN NEGATIVE (NEGATIVE); URINE BLOOD 2+ (NEGATIVE); URINE COLOR Straw (YELLOW); URINE GLUCOSE (UA) NORMAL (Normal); URINE KETONE NEGATIVE (NEGATIVE); URINE LEUKOCYTE ESTERASE NEG Leu/uL (Negative); URINE PROTEIN NEGATIVE (NEGATIVE); URINE UROBILINOGEN NORMAL mg/dL (0.2-1.0); WBC URINE 3 /hpf (0-5)
[2017-06-01] MEDS: HYDROmorphone 1 mg/ml ISec IVP PRN ×3 (01:43→12:37)
[2017-06-01] MEDS: ceFAZolin IV 2 gm in Dextrose 2 GM/100 ML BAG IVPB SCH (05:34)
[2017-06-01] MEDS: Levothyroxine 25 MCG TAB PO SCH (05:34)
[2017-06-01] MEDS: Sodium Chloride 0.9% 1,000 ML IV SCH (07:45)
[2017-06-01 08:39] LABS: BASO % 0.4 % (0.0-2.0); EOS % 0.3 % (0.0-4.0); HEMATOCRIT 32.8 % (35.0-51.0); LYMPH # 1.1 K/uL (1.0-4.3); LYMPH % 9.5 % (20.0-40.0); MEAN CELL VOLUME 87.1 fL (80.0-94.0); MEAN CORPUSCULAR HEMOGLOBIN 28.9 pg (27.0-31.0); MEAN CORPUSCULAR HGB CONC 33.2 g/dL (33.0-37.0); MEAN PLATELET VOLUME 8.7 fL (7.2-11.7); MONO # 1.6 K/uL (0.0-0.8); MONO % 13.3 % (0.0-10.0); PLATELET COUNT 198 K/uL (130-400); RED CELL DISTRIBUTION WIDTH 13.8 % (11.5-14.5); WHITE BLOOD COUNT 11.8 K/uL (4.8-10.8)
[2017-06-01 08:51] LABS: CHLORIDE 92 mmol/L (98-107)
[2017-06-01 08:52] LABS: POTASSIUM 3.6 mmol/L (3.6-5.2); SODIUM 129 mmol/L (132-148)
[2017-06-01 08:54] LABS: AST/SGOT 50 U/L (17-59); BILIRUBIN,TOTAL 1.3 mg/dL (0.2-1.3); CARBON DIOXIDE 27 mmol/L (22-30); GFR AFRICAN-AMERICAN > 60
[2017-06-01 08:56] LABS: ALB/GLOB RATIO 1.7 (1.0-2.1); ALKALINE PHOSPHATASE 42 U/L (38-126); ALT/SGPT 41 U/L (21-72); BLOOD UREA NITROGEN 15 mg/dL (9-20); GLUCOSE,RANDOM 96 mg/dL (75-110); TOTAL PROTEIN 5.9 g/dL (6.3-8.3)
[2017-06-01] MEDS: Enoxaparin 40 mg Syringe SC SCH (09:43)
[2017-06-01] MEDS: Magnesium Oxide 400 mg Tab UD PO SCH (09:48)
[2017-06-01 09:53] LABS: NEUTROPHIL 79 % (50-75); TOTAL CELLS COUNTED 100
[2017-06-01 09:54] LABS: LARGE PLATELETS PRESENT
[2017-06-01] MEDS: Oxycodone/Acetaminophen 5/325 mg Tab PO PRN (17:10)
--- NOTE | 2017-06-01 20:24 | CP.PCM.PN ---
Subjective - Date & Time of Evaluation Date of Evaluation: 05/31/17 Time of Evaluation: 10:00 - Subjective Subjective: still w/ pain at surgical site, right knee s/p rt TKR no sob Objective - Vital Signs/Intake and Output Vital Signs (last 24 hours): Temp Pulse Resp BP Pulse Ox 101.6 F H 109 H 20 142/71 97 06/01/17 18:17 06/01/17 16:35 06/01/17 16:35 06/01/17 16:35 06/01/17 16:35 - Medications Medications: Current Medications Allopurinol (Zyloprim) 300 mg PO DAILY [facility] Last Admin: 06/01/17 09:57 Dose: 300 mg Alprazolam (Xanax) 0.5 mg PO BID [facility] Last Admin: 06/01/17 17:09 Dose: 0.5 mg Aspirin (Ecotrin) 81 mg PO DAILY [facility] Last Admin: 05/31/17 10:07 Dose: 81 mg Enoxaparin Sodium (Lovenox) 40 mg SC DAILY [facility] Last Admin: 06/01/17 09:43 Dose: 40 mg Famotidine (Pepcid) 20 mg PO BID [facility] Last Admin: 06/01/17 17:08 Dose: 20 mg Fenofibrate (Tricor) 48 mg PO DAILY [facility] Last Admin: 06/01/17 09:40 Dose: 48 mg Hydrochlorothiazide (Hydrodiuril) 25 mg PO DAILY [facility] Last Admin: 06/01/17 09:40 Dose: 25 mg Hydromorphone HCl (Dilaudid) 1 mg IVP Q4H PRN PRN Reason: Pain, moderate (4-7) Last Admin: 06/01/17 12:37 Dose: 1 mg Sodium Chloride (Sodium Chloride 0.9%) 1,000 mls @ 50 mls/hr IV .Q20H [facility] Last Admin: 06/01/17 07:45 Dose: Not Given Levothyroxine Sodium (Synthroid) 25 mcg PO DAILY@0630 [facility] Last Admin: 06/01/17 05:34 Dose: 25 mcg Losartan Potassium (Cozaar) 100 mg PO DAILY [facility] Last Admin: 05/31/17 10:07 Dose: 100 mg Magnesium Oxide (Mag-Ox) 400 mg PO DAILY [facility] Last Admin: 06/01/17 09:48 Dose: 400 mg Oxycodone/Acetaminophen (Percocet 5/325 Mg Tab) 2 tab PO Q4 PRN PRN Reason: Pain, Mild (1-3) Stop: 06/02/17 15:43 Last Admin: 06/01/17 17:10 Dose: 2 tab Rosuvastatin Calcium (Crestor) 10 mg PO HS [facility] Last Admin: 05/31/17 21:40 Dose: 10 mg Fluticasone/Salmeterol (Advair Diskus 250/50) 1 puff INH RQ12 JIGNESH Ticagrelor (Brilinta) 60 mg PO BID [facility] Last Admin: 06/01/17 17:09 Dose: 60 mg Zolpidem Tartrate (Ambien) 5 mg PO HS [facility] Last Admin: 05/31/17 22:30 Dose: 5 mg - Labs Labs: 06/01/17 08:26 06/01/17 08:26 - Constitutional Appears: Non-toxic - Head Exam Head Exam: NORMAL INSPECTION - Eye Exam Eye Exam: Scleral icterus - Neck Exam Neck Exam: Full ROM - Respiratory Exam Respiratory Exam: NORMAL BREATHING PATTERN - Cardiovascular Exam Cardiovascular Exam: REGULAR RHYTHM - GI/Abdominal Exam GI & Abdominal Exam: Normal Bowel Sounds - Rectal Exam Rectal Exam: NORMAL INSPECTION - Extremities Exam Extremities Exam: Calf Tenderness, Pedal Edema Additional comments: s/p rt TKR - Neurological Exam Neurological Exam: Alert, Oriented x3 Assessment and Plan - Assessment and Plan (Free Text) Assessment: s/p rt TKR CAD HTN COPD Plan: On Brilinta and ASA Pain meds Bronchodilators
--- NOTE | 2017-06-01 20:53 | CP.PCM.PN ---
Subjective - Date & Time of Evaluation Date of Evaluation: 06/01/17 Time of Evaluation: 09:00 - Subjective Subjective: less pain no calf tenderness no bleeding Objective - Vital Signs/Intake and Output Vital Signs (last 24 hours): Temp Pulse Resp BP Pulse Ox 99.8 F H 109 H 20 142/71 97 06/01/17 20:29 06/01/17 16:35 06/01/17 16:35 06/01/17 16:35 06/01/17 16:35 - Medications Medications: Current Medications Allopurinol (Zyloprim) 300 mg PO DAILY [facility] Last Admin: 06/01/17 09:57 Dose: 300 mg Alprazolam (Xanax) 0.5 mg PO BID [facility] Last Admin: 06/01/17 17:09 Dose: 0.5 mg Aspirin (Ecotrin) 81 mg PO DAILY [facility] Last Admin: 05/31/17 10:07 Dose: 81 mg Enoxaparin Sodium (Lovenox) 40 mg SC DAILY [facility] Last Admin: 06/01/17 09:43 Dose: 40 mg Famotidine (Pepcid) 20 mg PO BID [facility] Last Admin: 06/01/17 17:08 Dose: 20 mg Fenofibrate (Tricor) 48 mg PO DAILY [facility] Last Admin: 06/01/17 09:40 Dose: 48 mg Hydrochlorothiazide (Hydrodiuril) 25 mg PO DAILY [facility] Last Admin: 06/01/17 09:40 Dose: 25 mg Hydromorphone HCl (Dilaudid) 1 mg IVP Q4H PRN PRN Reason: Pain, moderate (4-7) Last Admin: 06/01/17 12:37 Dose: 1 mg Sodium Chloride (Sodium Chloride 0.9%) 1,000 mls @ 50 mls/hr IV .Q20H [facility] Last Admin: 06/01/17 07:45 Dose: Not Given Levothyroxine Sodium (Synthroid) 25 mcg PO DAILY@0630 [facility] Last Admin: 06/01/17 05:34 Dose: 25 mcg Losartan Potassium (Cozaar) 100 mg PO DAILY [facility] Last Admin: 05/31/17 10:07 Dose: 100 mg Magnesium Oxide (Mag-Ox) 400 mg PO DAILY [facility] Last Admin: 06/01/17 09:48 Dose: 400 mg Oxycodone/Acetaminophen (Percocet 5/325 Mg Tab) 2 tab PO Q4 PRN PRN Reason: Pain, Mild (1-3) Stop: 06/02/17 15:43 Last Admin: 06/01/17 17:10 Dose: 2 tab Rosuvastatin Calcium (Crestor) 10 mg PO HS [facility] Last Admin: 05/31/17 21:40 Dose: 10 mg Fluticasone/Salmeterol (Advair Diskus 250/50) 1 puff INH RQ12 [facility] Ticagrelor (Brilinta) 60 mg PO BID [facility] Last Admin: 06/01/17 17:09 Dose: 60 mg Zolpidem Tartrate (Ambien) 5 mg PO HS [facility] Last Admin: 05/31/17 22:30 Dose: 5 mg - Labs Labs: 06/01/17 08:26 06/01/17 08:26 - Head Exam Head Exam: NORMAL INSPECTION - Eye Exam Eye Exam: absent: Scleral icterus - ENT Exam ENT Exam: Mucous Membranes Moist - Neck Exam Neck Exam: Full ROM - Respiratory Exam Respiratory Exam: NORMAL BREATHING PATTERN - Cardiovascular Exam Cardiovascular Exam: REGULAR RHYTHM - GI/Abdominal Exam GI & Abdominal Exam: Soft. absent: Tenderness - Extremities Exam Extremities Exam: Pedal Edema. absent: Calf Tenderness Additional comments: right knee pain Assessment and Plan - Assessment and Plan (Free Text) Assessment: s/p rt TKR CAD COPD Plan: Pain meds H/H stable bronchodilators Acute rehab when ok with ortho
[2017-06-02] MEDS: Sodium Chloride 0.9% 1,000 ML IV SCH (04:32)
[2017-06-02] MEDS: Levothyroxine 25 MCG TAB PO SCH (05:47)
[2017-06-02 06:55] LABS: BASO # 0.1 K/uL (0.0-0.2); BASO % 0.4 % (0.0-2.0); EOS % 0.2 % (0.0-4.0); HEMATOCRIT 31.8 % (35.0-51.0); LYMPH # 1.4 K/uL (1.0-4.3); MEAN CELL VOLUME 85.8 fL (80.0-94.0); MEAN CORPUSCULAR HEMOGLOBIN 29.1 pg (27.0-31.0); MEAN PLATELET VOLUME 8.7 fL (7.2-11.7); MONO # 1.6 K/uL (0.0-0.8); MONO % 12.2 % (0.0-10.0); RED CELL DISTRIBUTION WIDTH 13.9 % (11.5-14.5); WHITE BLOOD COUNT 13.1 K/uL (4.8-10.8)
[2017-06-02 08:18] LABS: CHLORIDE 92 mmol/L (98-107)
[2017-06-02 08:19] LABS: SODIUM 128 mmol/L (132-148)
[2017-06-02 08:21] LABS: ALB/GLOB RATIO 1.4 (1.0-2.1); ALKALINE PHOSPHATASE 43 U/L (38-126); ALT/SGPT 36 U/L (21-72); AST/SGOT 42 U/L (17-59); BILIRUBIN,TOTAL 1.2 mg/dL (0.2-1.3); BLOOD UREA NITROGEN 15 mg/dL (9-20); CARBON DIOXIDE 25 mmol/L (22-30); GFR AFRICAN-AMERICAN > 60; TOTAL PROTEIN 6.6 g/dL (6.3-8.3)
[2017-06-02 08:22] LABS: CALCIUM 8.4 mg/dl (8.6-10.4); GLUCOSE,RANDOM 128 mg/dL (75-110)
[2017-06-02 08:43] LABS: POTASSIUM 3.8 mmol/L (3.6-5.2)
[2017-06-02] MEDS: Enoxaparin 40 mg Syringe SC SCH (09:49)
[2017-06-02] MEDS: Magnesium Oxide 400 mg Tab UD PO SCH (09:49)
[2017-06-02] MEDS ORDERED: POLYETHYLENE GLYCOL 3350 17 GM/Dose PACKET PO SCH (10:45)
[2017-06-02] MEDS: HYDROmorphone 1 mg/ml ISec IVP PRN ×2 (12:22→17:44)
[2017-06-02] MEDS: Oxycodone/Acetaminophen 5/325 mg Tab PO PRN (13:55)
--- NOTE | 2017-06-02 15:09 | CP.PCM.PN ---
Subjective - Date & Time of Evaluation Date of Evaluation: 06/02/17 Time of Evaluation: 15:06 - Subjective Subjective: PT CLEARED FOR D/C BY DR. GARCIA--OK TO SEND PT TO [facility] TODAY. DR. SIERRA (PHYSICIAN ADVISOR) CONACTED DR. WILLSON AND PER HIM PT IS CLEARED FOR D /C TO TCU. REVIEWED THE PT'S LABS AND PER PRIMARY RN JEANNETTE NOTES FROM THIS AM DR. GARCIA MADE AWARE OF THE SODIUM LEVEL BUT OFFERED NO FURTHER ORDERS. CM PAT AWARE AND SW TO ARRANGE TRANSPORTATION FOR TODAY. NO FURTHER ORDERS. Objective - Vital Signs/Intake and Output Vital Signs (last 24 hours): Temp Pulse Resp BP Pulse Ox 98.6 F 75 20 142/82 97 06/02/17 08:00 06/02/17 08:00 06/02/17 08:00 06/02/17 08:00 06/02/17 08:00 Intake and Output: 06/02/17 06/02/17 06:59 18:59 Intake Total 400 Output Total 1000 Balance -600 - Medications Medications: Current Medications Allopurinol (Zyloprim) 300 mg PO DAILY [facility] Last Admin: 06/02/17 09:49 Dose: 300 mg Alprazolam (Xanax) 0.5 mg PO BID [facility] Last Admin: 06/02/17 09:49 Dose: 0.5 mg Aspirin (Ecotrin) 81 mg PO DAILY [facility] Last Admin: 06/02/17 09:48 Dose: 81 mg Enoxaparin Sodium (Lovenox) 40 mg SC DAILY [facility] Last Admin: 06/02/17 09:49 Dose: 40 mg Famotidine (Pepcid) 20 mg PO BID [facility] Last Admin: 06/02/17 09:49 Dose: 20 mg Fenofibrate (Tricor) 48 mg PO DAILY [facility] Last Admin: 06/02/17 09:49 Dose: 48 mg Hydrochlorothiazide (Hydrodiuril) 25 mg PO DAILY [facility] Last Admin: 06/02/17 09:49 Dose: 25 mg Hydromorphone HCl (Dilaudid) 1 mg IVP Q4H PRN PRN Reason: Pain, moderate (4-7) Last Admin: 06/02/17 12:22 Dose: 1 mg Sodium Chloride (Sodium Chloride 0.9%) 1,000 mls @ 50 mls/hr IV .Q20H [facility] Last Admin: 06/02/17 04:32 Dose: Not Given Levothyroxine Sodium (Synthroid) 25 mcg PO DAILY@0630 [facility] Last Admin: 06/02/17 05:47 Dose: 25 mcg Losartan Potassium (Cozaar) 100 mg PO DAILY [facility] Last Admin: 06/02/17 09:49 Dose: 100 mg Magnesium Oxide (Mag-Ox) 400 mg PO DAILY [facility] Last Admin: 06/02/17 09:49 Dose: 400 mg Oxycodone/Acetaminophen (Percocet 5/325 Mg Tab) 2 tab PO Q4 PRN PRN Reason: Pain, Mild (1-3) Stop: 06/02/17 15:43 Last Admin: 06/02/17 13:55 Dose: 2 tab Polyethylene Glycol (Miralax) 17 gm PO DAILY [facility] Last Admin: 06/02/17 11:16 Dose: 17 gm Rosuvastatin Calcium (Crestor) 10 mg PO HS [facility] Last Admin: 06/01/17 21:47 Dose: 10 mg Fluticasone/Salmeterol (Advair Diskus 250/50) 1 puff INH RQ12 [facility] Ticagrelor (Brilinta) 60 mg PO BID [facility] Last Admin: 06/02/17 09:50 Dose: 60 mg Zolpidem Tartrate (Ambien) 5 mg PO HS [facility] Last Admin: 06/01/17 22:08 Dose: 5 mg - Labs Labs: 06/02/17 06:45 06/02/17 06:45
--- NOTE | 2017-06-02 16:01 | RAD ---
PROCEDURE: Right Knee Radiographs. HISTORY: s/p right total knee replacement COMPARISON: Right knee radiographs 05/30/2017 prior FINDINGS: BONES: Total knee replacement hardware is again identified in position with skin dario unchanged and placement. Surgical drains are removed. No interval fracture subluxation or dislocation. Hardware remains in good apparent position. JOINTS: Total knee replacement. JOINT EFFUSION: None. OTHER FINDINGS: Limited soft tissue changes seen postoperatively anteriorly. IMPRESSION: Stable appearing total knee replacement with limited postoperative change identified. Surgical drain removed.
[2017-06-02 16:27] VITALS: BP 131/74
[2017-06-02 16:34] VITALS: PULSE 72; TEMP 99; O2SAT 96
--- NOTE | 2017-06-06 16:26 | CARD ---
APPROVED REPORT EKG Measurement Heart [id number] <Conclusion> Normal sinus rhythm Normal ECG
--- NOTE | 2017-06-30 02:46 | OP ---
PROCEDURE DATE: 05/30/2017 PREOPERATIVE DIAGNOSES: Right knee: 1. Degenerative joint disease. 2. Varus deformity. 3. Synovitis. POSTOPERATIVE DIAGNOSES: Right knee: 1. Severe degenerative joint disease. 2. Varus deformity. 3. Synovitis. 4. Multiple loose bodies. PROCEDURE PERFORMED: Right knee: 1. Total knee arthroplasty. 2. Open extensive anterior synovectomy. 3. Open removal of multiple loose bodies. SURGEON: Marisol Guadarrama MD TOUR MANAGER: Jazmyne Boles PA-C. JUSTIFICATION FOR TOUR MANAGER: Jazmyne Boles is a certified physician bankruptcy assistant. He is a skilled certified ophthalmic surgical assistant. His presence was an absolute necessity for successful completion of the procedure. He provided skilled surgical assistance with positioning of the patient, positioning of extremity, management of the surgical ramirez, preparation of distal femur and proximal femur as well as patella with saw blade cuts and removal of bone, extensive synovectomy, open removal of loose bodies, proper cement technique, surgical exposure and retraction of the neurovascular structures, preparation of distal femur and proximal tibia and patella with proper cement technique and placement of trial implants followed by placement of final implants, wound closure. Jazmyne Boles was present for the entire case and was an absolute necessity for the successful completion of the procedure. TYPE OF ANESTHESIA: General endotracheal anesthesia with a postop regional nerve block placed by anesthesia staff in PACU. SPECIMENS: Bony cuts and loose bodies sent to pathology. TOURNIQUET TIME: 128 minutes at 300 mmHg. COMPLICATIONS: None. IMPLANTS: Medacta GMK sphere system with placement of a size #5 cemented femoral components, size #5 cemented tibial component, size 13 mm sphere polyethylene spacer, size #2 cemented polyethylene patellar button. ESTIMATED BLOOD LOSS: 50 mL. DRAINS: Hemovac drain x1. DISPOSITION: The patient was extubated in satisfactory and stable condition and tolerated the procedure well. INDICATIONS FOR SURGERY: The patient is a 61-year-old male with a past medical history significant for hypertension; COPD; coronary artery disease, status post stents x3, on 08/30/2013; diverticulitis; who presented to the office for the first time on 03/28/2014 with right greater than left knee pain. The patient also has a history of right knee arthroscopic partial medial meniscectomy by Dr. Eden at [facility] on 08/12/2008. He stated that his right knee pain was significantly improved and was asymptomatic for a period of 3 to 4 years. Finally, the pain in the right knee started to progressively worsen, much worse at the medial joint line with a global bogginess as well with recurrent episodes of effusion. X-rays taken in the office showed varus deformity with significant DJD, worse at the medial compartment. He underwent conservative treatment under my care over the next 3 years including multiple cortisone injections to the right knee on 03/28/2014, 11/14/2015, 04/29/2016, 08/29/2016, 10/28/2016 and 02/17/2017 with complete resolution of right knee pain with the cortisone mixture injections in the office. He also underwent hyaluronic acid, Orthovisc injection series to the right knee between 06/2014 and in 02/2016 with complete resolution of his pain and good outcome that was temporary in nature. Finally, the pain progressively worsened in 2017 despite best efforts with conservative treatment including compound pain cream, cuts in medial offload bracing, physical therapy for over 2 years. Pain was consistently rated 7/10 and localized to medial joint line and was interrupting with his ADLs and causing him to have decreased activity. Finally, after review of his most recent x-rays taken in the office depicting worsening degenerative joint disease and varus deformity, he was indicated for a total knee replacement. The risks, benefits and alternatives of the procedure were discussed at length with the patient with the risks including not limited to infection, neurovascular damage, development of blood clots including DVT and PE, periprosthetic fracture, need for further surgery, failure of implants, stiffness, development of chronic pain and disability, anesthesia reactions including . He was also taking Brilinta under the treatment of his lead ramp service man as lifelong treatment for his cardiac stents. We had a long discussion about stopping the Brilinta for at least 7 days to make it safe to proceed with surgery, and he was able to obtain cardiac clearance and medical clearance to proceed with surgery as well as his lead ramp service man approving him being off the Brilinta for the 7 days prior to surgery and the 4 weeks after surgery, which he would be taking the Lovenox. I had multiple discussions with lead ramp service man and we determined that the Brilinta was not FDA approved for DVT prophylaxis postoperative after knee replacement, and we would extend his treatment time with the Lovenox to 4 weeks due to his risk factors. Once again, he was referred to his primary care physician and his lead ramp service man for preoperative medical and cardiac clearance and the procedure was scheduled. He watched surgical animation videos and diagnoses animation videos and stated he had a good understanding of his diagnosis as well as the procedures to be done. PROCEDURE IN DETAIL: The patient was identified in the preoperative holding area and the right knee was marked for surgery. Once again as described above; the risks, benefits, and alternatives of the procedure were discussed at length with the patient and an informed consent was obtained. After brief discussion with the anesthesia staff, perioperative IV antibiotics in the form of 2 g of Ancef were administered and the patient was taken to the operating room and placed in the well-padded operating room table without bony prominences and superficial neurovascular structures well padded. An initial time-out was done with the surgeon, anesthesia staff, OR staff, all are in agreement with the patient, procedure being done, and the extremity being operated on. General anesthesia was administered without difficulty or complication with the plan of administering a regional nerve block postop in PACU. The right lower extremity was prepped and draped in a standard sterile after examination under anesthesia was carried out. EXAMINATION UNDER ANESTHESIA: Right knee with no warmth, 1+ swelling and skin intact, no redness, range of motion limited with a 5 degree flexion contracture and flexion limited to 100 degrees flexion. There was significant crepitance with no instability noted. There was overall varus deformity. CONTINUATION OF PROCEDURE: The right knee was prepped and draped in a standard sterile fashion. Tourniquet was placed high on the right thigh. Final time-out was done with the surgeon, anesthesia staff, and OR staff and all are in agreement with the patient, procedure to be done, and extremity being operated on. The right lower extremity was exsanguinated and the tourniquet was inflated for a total tourniquet time of 128 minutes at 300 mmHg. A medial parapatellar approach was then placed for the procedure. Incision was made starting 2 fingerbreadths above the level of the superior pole of the patella extending along the long access of the leg along the medial aspect of the patella down to the tibial tuberosity. Incision was made through skin down subcutaneous tissue while maintaining good hemostasis down to the level of the fascia. Sharp incision was made as an arthrotomy starting at the medial aspect of the quadriceps tendon extending and around the retinaculum and patellar bone down to the medial aspect of the patellar tendon. Synovial fluid was aspirated with suction which was copious in nature. This exposed significant anterior compartment synovitis and hypertrophic synovium that was extensive in nature. With the use of the Bovie, an open extensive anterior synovectomy was carried out and maintained good hemostasis to allow access to the distal femur. The infrapatellar fat pad was resected. The patella was then everted and with the use of the Talkbits patellar guide, the patella resurfacing cut was carried out. The patella was then subluxed laterally to allow for access to the distal femur. The distal femoral contact points for the Adhysteria CT custom cutting blocks were debrided down to bone. The distal femur cuts and cutting block was then placed into position at the contact points and pinned into position. The distal femoral cut was then carried out with the saw blade. A 4-in-1 guide was then pinned position with good 3 degree external rotation with line confirmed and the anterior and posterior as well as the anterior chamfer and posterior chamfer cuts were carried out. Distal femoral size 5 trial was then impacted into position and found to have good fit with the cuts in perfect position. The distal femoral trial was then removed and attention was then turned towards preparation of the proximal tibia. The contact points with the proximal tibia cuts and cutting guide were then debrided of overlying cartilage and the cuts and cutting guide was placed into position and pinned to the proximal tibia. Alignment guide was used to ensure islam of mutual alignment was achieved. Proximal tibia cut was carried out with the saw blade removing the proximal tibia articular surface. Once this was done to completion, the preparation of the proximal femur was carried out to completion with use of the proximal reamer and the wedge osteotome. Trialing with size 5 proximal tibia implant and size 5 distal femur with a polyethylene spacer was then carried out and full range of motion was achieved from 0 degrees to 130 degrees flexion with good soft tissue balancing achieved. Prior to the proximal tibia preparation, a medial release was carried out elevating the superficial and deep MCL as well as removal of the osteophytes of the medial tibia. Once the trials are confirmed to be in good position, attention was then turned towards completion of the extensive open synovectomy as well as removal of the multiple loose bodies down at the posterior aspect of the knee joint behind the femoral condyles. The osteophytes of the posterior femoral condyles were also resected. Good hemostasis was achieved and the cut surfaces were copiously irrigated and padded dry. The cement was mixed and proper cement technique was used to prepare the distal femur as well as proximal tibia and the patellar resurfacing. Final implants consisting of a distal femur cemented GMK MyKnee system was impacted into position after placement of the proximal tibia size 5 tibial base plate cemented in good position utilizing good cementing technique. An initial trial of 11 mm polyethylene was placed and axial compression was applied in full extension. The patellar resurfacing was completed with good cement technique and completion of the LAZARA hose for placement of the polyethylene patella button. A size 2 polyethylene patella button was then cemented in good position. Once the cement hardened, the tourniquet was deflated for a total tourniquet time of 128 minutes. The trial polyethylene spacer was felt to allow hyperextension and we went up in size to a 13 mm polyethylene spacer was providing full range of motion once again without hyperextension. Once again, there was good soft tissue balancing throughout range of motion with no instability noted. There was islam of neutral alignment as well. Local anesthetic was placed at the posterior capsule and the final 13 mm sphere polyethylene spacer was placed and locked into the tibial base plate. The knee was taken to range of motion and the patella was found to track normally with full range of motion achieved without any instability and islam of neutral alignments. Good hemostasis was achieved and the wound and knee joint were copiously irrigated with approximately 2000 mL of normal saline and the chlorhexidine infused wash. A Hemovac drain was placed and the wound closure was carried out with alternating #2 5-0 Vicryl and #1 Vicryl suture for the retinacular repair as well as the quadriceps tendon and patella tendon repair. Subcutaneous tissue was re-approximated with alternating #1 Vicryl suture and 2-0 Vicryl suture followed by dario for skin. Sterile dressings were applied followed by layer sterile cast padding from the toes up to the superior thigh followed by a layer of compressive Damon wrap from the toes up to the superior thigh. The knee was then placed in a knee immobilizer in full extension. The patient was then extubated and transferred to PACU in stable condition having tolerated the procedure well. DISPOSITION: The patient will remain as an inpatient until he is medically and cardiac cleared for placement in a rehab facility or home with services. He will work with case management, physical therapy and social work to determine optimum placement. He will be started on DVT prophylaxis in the form of Lovenox 40 mg once daily starting postoperative day #1. I will monitor his progress as an inpatient. He will receive adequate pain control. He will work with physical therapy and weightbearing as tolerated to the right lower extremity with no restrictions. He will work with physical therapy to restore range of motion and maintain his range of motion as much as possible. Marisol Guadarrama MD
== END 2017-06-02 20:50 | DRG 470 ==
LOC: C.9S 05-30 09:55 → C.6T 05-30 22:47
PROVIDERS: ADMIT Internal Medicine; ATTEND Internal Medicine
PROC: 0SBC0ZZ Excision of Right Knee Joint, Open Approach (ICD-10-PCS; 2017-05-30)
PROC: 0SRC0J9 Replacement of Right Knee Joint with Synthetic Substitute, Cemented, Open Approach (ICD-10-PCS; principal; 2017-05-30 11:26)
DX: M17.11 Unilateral primary osteoarthritis, right knee (principal); I10 Essential (primary) hypertension; M21.161 Varus deformity, not elsewhere classified, right knee; M23.41 Loose body in knee, right knee; M65.861 Other synovitis and tenosynovitis, right lower leg; M21.261 Flexion deformity, right knee; I25.10 Atherosclerotic heart disease of native coronary artery without angina pectoris; J44.9 Chronic obstructive pulmonary disease, unspecified; Z95.5 Presence of coronary angioplasty implant and graft; M25.562 Pain in left knee

== ENCOUNTER 2017-08-14 12:51 | Emergency (ER) | payer MEDICARE, BC ==
[2017-08-14 12:52] VITALS: BMI 28.3
[2017-08-14] MEDS ORDERED: DiphenhydrAMINE 50 mg/ml Inj IVP STA (13:38)
--- NOTE | 2017-08-14 13:39 | C.PDOC ---
History Of Present Illness 62 y/o male, with history of CAD and Bypass Surgery, presents to the ER complaining of a myriad of symptoms which began 4 days ago. Patient reports that he has redness and itching in the chest and lower extremities. Patient also reports that he has 6 to 7 episodes of left sided sharp chest pain for few seconds to 1 minute per day. Patient states that he has pain in his left shoulder and left lower extremity which stretches from the left calf to the left thigh. Patient denies coughing and sob. Of note , the patient is vague. Chief Complaint (Nursing): Chest Pain History Per: Patient History/Exam Limitations: no limitations Onset/Duration Of Symptoms: Days Current Symptoms Are (Timing): Still Present Severity: Moderate Past Medical History Reviewed: Historical Data, Nursing Documentation, Vital Signs Vital Signs: Last Vital Signs Temp 97.6 F 08/14/17 17:00 Pulse 84 08/14/17 17:37 Resp 20 08/14/17 17:37 BP 147/76 08/14/17 17:37 Pulse Ox 97 08/14/17 17:37 - Medical History PMH: Arthritis, CAD, Colonic Polyps, COPD, Diverticulitis, HTN, Hypercholesterolemia, Hypothyroidism Denies: Chronic Kidney Disease Surgical History: CABG (CABG 3 VESSEL 2013), Coronary Stent, Endoscopy - [facility] Procedures EXCISION OF RIGHT KNEE JOINT, OPEN APPROACH (05/30/17) EXERCISE TRMT MUSCULOSK LOW BACK/LE W ASSIST EQUIP (06/02/17) GAIT TRAINING/AMBULAT TREATMENT USING ASSIST EQUIPMENT (06/02/17) HOME MANAGEMENT TREATMENT USING ASSIST EQUIPMENT (06/02/17) LEFT HEART CARDIAC CATH (08/24/13) LT HEART ANGIOCARDIOGRAM (08/24/13) OTHER MYECTOMY (03/17/13) REPLACE OF R KNEE JT WITH SYNTH SUB, CEMENT, OPEN APPROACH (05/30/17) Family History: States: No Known Family Hx - Social History Hx Tobacco Use: No Hx Alcohol Use: No Hx Substance Use: No - Immunization History Hx Tetanus Toxoid Vaccination: No Hx Influenza Vaccination: No Hx Pneumococcal Vaccination: No Review Of Systems Constitutional: Negative for: Fever, Chills Cardiovascular: Positive for: Chest Pain (left sided) Respiratory: Negative for: Cough, Shortness of Breath Musculoskeletal: Positive for: Shoulder Pain (left shoulder), Leg Pain (left leg ) Physical Exam - Physical Exam Skin: Other (mild erythema to left eyelid and left cheek, macular erythema over abdominal wall and left side of face) Tongue: Other (deviates to right side) Neck: Normal, No Midline Cervical Tenderness, Supple, Other (5/5 Strength) Chest: Symmetrical Cardiovascular: Rhythm Regular Respiratory: Normal Breath Sounds, No Accessory Muscle Use, No Rales, No Rhonchi , No Wheezing Gastrointestinal/Abdominal: Normal Exam, Soft, No Tenderness Extremity: Tenderness (left shoulder in subacromial area), Other (mildly decreased strength on flexion of left shoulder, equal strength to lower extremities) Neurological/Psych: Oriented x3, Normal Speech, Normal Cognition, Normal Motor, Normal Sensation, Other (no protonator drift) ED Course And Treatment - Laboratory Results Result Diagrams: 08/14/17 13:47 08/14/17 13:47 ECG: Interpreted By Me, Viewed By Me ECG Rhythm: Sinus Rhythm Rate From EC (BPM) O2 Sat by Pulse Oximetry: 99 (RA) Pulse Ox Interpretation: Normal - Other Rad CXR X-Ray: Viewed By Me, Read By Radiologist Interpretation: HISTORY: Sepsis Patient. COMPARISON: 05/31/2017. FINDINGS: LUNGS: No consolidation per previously referenced right lung base small nodular density not now appreciated. PLEURA: No significant pleural effusion identified, no pneumothorax apparent. CARDIOVASCULAR: Minimal cardiomegaly. No central pulmonary venous congestion. Coronary artery bypass surgery inferred. OSSEOUS STRUCTURES: None sternotomy changes mild acromioclavicular joint hypertrophic arthrosis possible tiny ossific bordering debris. VISUALIZED UPPER ABDOMEN: Normal. OTHER FINDINGS: None. IMPRESSION: No pulmonary infiltrate. No acute cardiopulmonary pathology appreciated - CT Scan/US CT - Head Other Rad Studies (CT/US): Read By Radiologist, Radiology Report Reviewed CT/US Interpretation: PROCEDURE: CT HEAD WITHOUT CONTRAST. HISTORY: L sided wkns. COMPARISON: None available. TECHNIQUE: Axial computed tomography images were obtained through the head/brain without intravenous contrast. Radiation dose: Total exam DLP = 972.02 mGy-cm. This CT exam was performed using one or more of the following dose reduction techniques: Automated exposure control, adjustment of the mA and/or kV according to patient size, and/ or use of iterative reconstruction technique. FINDINGS: HEMORRHAGE: No intracranial hemorrhage. BRAIN: No mass effect or edema. Intracranial atherosclerosis. The reinoso-white matter differentiation appears intact. Please note that MRI with diffusion imaging is more sensitive in the detection of acute ischemic event. VENTRICLES: No hydrocephalus. CALVARIUM: Unremarkable. PARANASAL SINUSES: Unremarkable as visualized. No significant inflammatory changes. MASTOID AIR CELLS: Unremarkable as visualized. No inflammatory changes. OTHER FINDINGS: None. IMPRESSION: No acute intracranial pathology identified. Please note that MRI with diffusion imaging is more sensitive in the detection of acute ischemic event. Medical Decision Making Medical Decision Making: Differential Diagnoses Chest Pain vs. Allergic Reaction vs. Left Sided Weakness Plan -- Ct - Head W/O Contrast --EKG --Labs Disposition - Disposition Referrals: [facility] [Outside] Disposition: HOME/ ROUTINE Disposition Time: 16:23 Condition: GOOD Additional Instructions: See your PMD for further w/u of liver test abnormalities. Prescriptions: Naproxen 500 mg PO BID #14 tab Instructions: Hepatitis A (ED), Hepatitis C (ED), Hepatitis B (ED) Forms: [employer] (Bulgarian) - Clinical Impression Clinical Impression: Hepatitis - Scribe Statement The provider has reviewed the documentation as recorded by the Chuck Carrera Provider Attestation: All medical record entries made by the Frederickibolga were at my direction and personally dictated by me. I have reviewed the chart and agree that the record accurately reflects my personal performance of the history, physical exam, medical decision making, and the department course for this patient. I have also personally directed, reviewed, and agree with the discharge instructions and disposition.
[2017-08-14 13:51] LABS: BASO # 0.1 K/uL (0.0-0.2); BASO % 1.1 % (0.0-2.0); EOS # 0.2 K/uL (0.0-0.7); EOS % 3.1 % (0.0-4.0); HEMOGLOBIN 12.1 g/dL (12.0-18.0); LYMPH # 1.1 K/uL (1.0-4.3); LYMPH % 14.4 % (20.0-40.0); MEAN CORPUSCULAR HEMOGLOBIN 27.2 pg (27.0-31.0); MEAN CORPUSCULAR HGB CONC 32.4 g/dL (33.0-37.0); MEAN PLATELET VOLUME 8.3 fL (7.2-11.7); MONO # 0.7 K/uL (0.0-0.8); NEUT # 5.5 K/uL (1.8-7.0); NEUT % 72.4 % (50.0-75.0); RBC 4.45 Mil/uL (4.40-5.90); RED CELL DISTRIBUTION WIDTH 15.2 % (11.5-14.5); WHITE BLOOD COUNT 7.6 K/uL (4.8-10.8)
[2017-08-14] MEDS ORDERED: DiphenhydrAMINE 50 mg/ml Inj ONE (13:53)
--- NOTE | 2017-08-14 14:41 | CT ---
PROCEDURE: CT HEAD WITHOUT CONTRAST. HISTORY: L sided wkns COMPARISON: None available. TECHNIQUE: Axial computed tomography images were obtained through the head/brain without intravenous contrast. Radiation dose: Total exam DLP = 972.02 mGy-cm. This CT exam was performed using one or more of the following dose reduction techniques: Automated exposure control, adjustment of the mA and/or kV according to patient size, and/or use of iterative reconstruction technique. FINDINGS: HEMORRHAGE: No intracranial hemorrhage. BRAIN: No mass effect or edema. Intracranial atherosclerosis. The reinoso-white matter differentiation appears intact. Please note that MRI with diffusion imaging is more sensitive in the detection of acute ischemic event. VENTRICLES: No hydrocephalus. CALVARIUM: Unremarkable. PARANASAL SINUSES: Unremarkable as visualized. No significant inflammatory changes. MASTOID AIR CELLS: Unremarkable as visualized. No inflammatory changes. OTHER FINDINGS: None. IMPRESSION: No acute intracranial pathology identified. Please note that MRI with diffusion imaging is more sensitive in the detection of acute ischemic event.
[2017-08-14 15:25] LABS: SQUAMOUS EPITHIAL < 1 /hpf (0-5); URINE BILIRUBIN NEGATIVE (NEGATIVE); URINE BLOOD 3+ (NEGATIVE); URINE CLARITY Clear (Clear); URINE COLOR Yellow (YELLOW); URINE GLUCOSE (UA) NORMAL (Normal); URINE HYALINE CAST 0-2 /lpf (0-2); URINE LEUKOCYTE ESTERASE NEG Leu/uL (Negative); URINE NITRATE NEGATIVE (NEGATIVE); URINE PROTEIN 2+ mg/dL (NEGATIVE); URINE UROBILINOGEN NORMAL mg/dL (0.2-1.0)
[2017-08-14 15:39] LABS: ALB/GLOB RATIO 1.3 (1.0-2.1); ALT/SGPT 310 U/L (21-72); AST/SGOT 672 U/L (17-59); BLOOD UREA NITROGEN 18 mg/dL (9-20); CALCIUM 8.6 mg/dl (8.6-10.4); GFR AFRICAN-AMERICAN > 60; GFR NON-AFRICAN AMERICAN > 60
--- NOTE | 2017-08-14 16:06 | RAD ---
HISTORY: Sepsis Patient COMPARISON: 05/31/2017 FINDINGS: LUNGS: No consolidation per previously referenced right lung base small nodular density not now appreciated. PLEURA: No significant pleural effusion identified, no pneumothorax apparent. CARDIOVASCULAR: Minimal cardiomegaly. No central pulmonary venous congestion. Coronary artery bypass surgery inferred OSSEOUS STRUCTURES: None sternotomy changes mild acromioclavicular joint hypertrophic arthrosis possible tiny ossific bordering debris. VISUALIZED UPPER ABDOMEN: Normal. OTHER FINDINGS: None. IMPRESSION: No pulmonary infiltrate. No acute cardiopulmonary pathology appreciated
[2017-08-14 17:03] VITALS: RESP 20; TEMP 97.6
[2017-08-14 17:40] VITALS: BP 147/76; PULSE 84
[2017-08-14 17:54] LABS: HEPATITIS B SURFACE AG NEGATIVE (NEGATIVE)
[2017-08-14 18:00] LABS: HEPATITIS A IGM NEGATIVE (NEGATIVE); HEPATITIS B CORE AB Negative (NEGATIVE)
[2017-08-14 18:11] LABS: HEPATITIS C ANTIBODY Negative (NEGATIVE)
[2017-08-14 23:51] VITALS: O2SAT 99
== END 2017-08-14 17:36 | disposition home or self-care (01) ==
LOC: C.ER 12:51
DX: K75.9 Inflammatory liver disease, unspecified (principal)
CPT/HCPCS: 70450; 71045; 80053; 80074; 81001; 84484; 85025; 96374; 99285; J1200